=== PATIENT | female | born 1950 | race Caucasian/White ===

== ENCOUNTER → 2019-05-13 | Outpatient (CLI) | payer MEDICARE ==
--- NOTE | 2019-05-13 16:15 | KCIC ---
KNEE BILAT 4V 05/13/2019 12:00 AM INDICATION: Right knee pain. Left knee for comparison. COMPARISON: None available. TECHNIQUE: 4 views of the bilateral knees are provided. FINDINGS: There is no acute fracture or dislocation. Mild bilateral medial femorotibial joint space narrowing, right greater than left. Bone mineralization is within normal limits. Joint spaces are maintained. Regional soft tissues are within normal limits. There is no soft tissue gas or osseous erosion. Small right knee joint effusion. IMPRESSION: No acute fracture or dislocation. Small right knee joint effusion. Mild medial femorotibial joint space narrowing, right greater than left, which may reflect mild osteoarthrosis. Electronically signed by: Carla Cuadra MD (05/13/2019 4:13 PM) [id number]
== END | disposition home or self-care (01) ==
LOC: KCIC 13:53
PROVIDERS: ATTEND Specialist
DX: M25.461 Effusion, right knee (principal)
CPT/HCPCS: 73564